=== PATIENT | male | born 1980 | race Caucasian/White ===

== ENCOUNTER 2018-07-24 15:56 | Inpatient (IN) | payer MEDICAID, OTHER ==
[~2018-07-24] VITALS: Ht 175.3 cm; Wt 95.8 kg
[~2018-07-24 15:56] MED LIST: DOCU250C91 PO; GABA-533 PO; LITH300C3 PO; MIRT30 PO; PRAZ5 PO; QUET200T29 PO
[2018-07-24 16:43] LABS: BASOPHILS % (AUTO) 0.5 % (0.0-2.0); EOSINOPHILS % (AUTO) 2.4 % (1.0-6.0); HEMATOCRIT 43.5 % (41-53); HEMOGLOBIN 14.7 g/dL (13.5-17.5); LYMPHOCYTES # (AUTO) 2.1 K/uL (1.0-4.8); LYMPHOCYTES % (AUTO) 25.7 % (22.0-44.0); MEAN CORPUSCULAR HEMOGLOBIN 28.8 pg (26.0-34.0); MEAN CORPUSCULAR HGB CONC 33.8 G/dL (31.0-37.0); MEAN CORPUSCULAR VOLUME 85 fL (80-100); MONOCYTES # (AUTO) 0.7 K/uL (0.1-1.0); MONOCYTES % (AUTO) 8.4 % (2.0-9.0); NEUTROPHILS # (AUTO) 5.1 K/uL (1.8-7.7); PLATELET COUNT (AUTO) 233 K/uL (150-450); RED BLOOD CELL COUNT(AUTO) 5.11 MIL/uL (4.50-5.90); RED CELL DISTRIBUTION WIDTH 13.2 % (11.5-14.5)
[2018-07-24 17:00] LABS: ANION GAP 8 mmol/L (8-16); CALCIUM, TOTAL 8.9 mg/dL (8.8-10.5); CARBON DIOXIDE 28 mmol/L (22-29); CHLORIDE 104 mmol/L (98-107); CREATININE 0.96 mg/dL (0.60-1.30); GLOMERULAR FILTR. RATE CALC > 60 mL/min (>60); GLUCOSE,RANDOM 95 mg/dL (70-110); SODIUM SERUM 140 mmol/L (136-145); UREA NITROGEN, BLOOD 17 mg/dL (7-18)
[2018-07-24 17:05] LABS: ALANINE AMINOTRANSFERASE 56 U/L (12-78); ALBUMIN 3.6 g/dL (3.4-5.0); ALKALINE PHOSPHATASE 72 U/L (46-116); ASPARTATE AMINOTRANSFERASE 32 U/L (15-37); BILIRUBIN,TOTAL 0.2 mg/dL (0.1-1.0); TOTAL PROTEIN, SERUM 7.2 g/dL (6.4-8.2)
[2018-07-24 17:24] LABS: LITHIUM < 0.20 mmol/L (0.60-1.20)
[2018-07-24 19:18] LABS: AMPHET/METH SCREEN,URINE NEGATIVE (NEGATIVE); BARBITURATE SCREEN, URINE NEGATIVE (NEGATIVE); BENZODIAZEPINES SCREEN,URINE NEGATIVE (NEGATIVE); CANNABINOID SCREEN,URINE NEGATIVE (NEGATIVE); COCAINE SCREEN,URINE NEGATIVE (NEGATIVE); METHADONE SCREEN, URINE NEGATIVE (NEGATIVE); OPIATE SCREEN,URINE NEGATIVE (NEGATIVE); PHENCYCLIDINE SCREEN,URINE NEGATIVE (NEGATIVE)
[2018-07-24 19:48] VITALS: BP 129/79
[2018-07-24] MEDS: LORazepam 2 MG TABLET PO PRN (20:31)
[2018-07-24] MEDS: HALOPERIDOL 5 MG TABLET PO PRN (20:31)
[2018-07-24] MEDS: PRAZOSIN HCL 5 MG CAPSULE PO SCH (21:48)
[2018-07-25] MEDS ORDERED: PNEUMOCOCCAL VACCINE POLYVALENT 0.5 ML VIAL [PPSV23] IM ONE (04:15)
[2018-07-25 07:08] LABS: CHOL/HDL RATIO 7.3 (4.2-7.3); CHOLESTEROL 204 mg/dL (131-200); HDL CHOLESTEROL 28 mg/dL (40-60); TRIGLYCERIDES 414 mg/dL (15-150)
[2018-07-25 08:03] VITALS: BP 130/84
[2018-07-25] MEDS: HALOPERIDOL 5 MG TABLET PO PRN ×2 (09:23→18:00)
[2018-07-25] MEDS: GABAPENTIN 400 MG CAPSULE PO SCH ×3 (09:23→17:25)
[2018-07-25] MEDS: LORazepam 2 MG TABLET PO PRN ×2 (09:23→18:00)
[2018-07-25] MEDS: DOCUSATE SODIUM 250 MG CAPSULE PO SCH (09:24)
[2018-07-25] MEDS: NICOTINE 21 MG/24 HOUR PATCH TD SCH (09:25)
[2018-07-25 18:07] VITALS: BP 109/71
[2018-07-25] MEDS: PRAZOSIN HCL 5 MG CAPSULE PO SCH (20:11)
[2018-07-26] MEDS: LORazepam 2 MG TABLET PO PRN ×2 (00:50→18:37)
[2018-07-26 01:05] VITALS: BP 141/91
[2018-07-26] MEDS: DOCUSATE SODIUM 250 MG CAPSULE PO SCH (10:23)
[2018-07-26] MEDS: GABAPENTIN 400 MG CAPSULE PO SCH ×3 (10:23→17:10)
[2018-07-26] MEDS: NICOTINE 21 MG/24 HOUR PATCH TD SCH (10:31)
[2018-07-26 12:02] VITALS: BP 108/61
[2018-07-26] MEDS: HALOPERIDOL 5 MG TABLET PO PRN ×2 (13:06→18:37)
[2018-07-26] MEDS: LITHIUM CARBONATE 300 MG CAPSULE PO SCH (17:10)
[2018-07-26 19:33] VITALS: BP 129/84
[2018-07-26] MEDS: MIRTAZAPINE 30 MG TABLET PO SCH (20:25)
[2018-07-26] MEDS: PRAZOSIN HCL 5 MG CAPSULE PO SCH (20:25)
[2018-07-27 01:22] VITALS: BP 104/80
[2018-07-27] MEDS: LITHIUM CARBONATE 300 MG CAPSULE PO SCH ×2 (07:18→16:49)
[2018-07-27 08:22] VITALS: BP 102/55
[2018-07-27] MEDS: DOCUSATE SODIUM 250 MG CAPSULE PO SCH (09:00)
[2018-07-27] MEDS: GABAPENTIN 400 MG CAPSULE PO SCH ×3 (09:09→16:49)
[2018-07-27] MEDS: NICOTINE 21 MG/24 HOUR PATCH TD SCH (09:10)
[2018-07-27 10:00] VITALS: BP 127/73
[2018-07-27] MEDS: LORazepam 2 MG TABLET PO PRN ×2 (13:34→19:22)
[2018-07-27] MEDS: HALOPERIDOL 5 MG TABLET PO PRN ×2 (13:35→19:22)
[2018-07-27 17:12] VITALS: BP 106/61
[2018-07-27] MEDS: MIRTAZAPINE 30 MG TABLET PO SCH (20:47)
[2018-07-27] MEDS: PRAZOSIN HCL 5 MG CAPSULE PO SCH (20:47)
[2018-07-28 00:25] VITALS: BP 117/77
[2018-07-28] MEDS: LITHIUM CARBONATE 300 MG CAPSULE PO SCH ×2 (06:57→17:09)
[2018-07-28 08:22] VITALS: BP 120/72
[2018-07-28] MEDS: DOCUSATE SODIUM 250 MG CAPSULE PO SCH (09:00)
[2018-07-28] MEDS: GABAPENTIN 400 MG CAPSULE PO SCH ×3 (09:57→17:09)
[2018-07-28] MEDS: NICOTINE 21 MG/24 HOUR PATCH TD SCH (09:59)
[2018-07-28] MEDS: HALOPERIDOL 5 MG TABLET PO PRN ×2 (12:41→19:01)
[2018-07-28] MEDS: LORazepam 2 MG TABLET PO PRN ×2 (12:41→19:01)
[2018-07-28] MEDS: MIRTAZAPINE 30 MG TABLET PO SCH (20:07)
[2018-07-28] MEDS: PRAZOSIN HCL 5 MG CAPSULE PO SCH (20:07)
[2018-07-28 20:34] VITALS: BP 118/68
[2018-07-29] MEDS: LITHIUM CARBONATE 300 MG CAPSULE PO SCH ×2 (06:56→16:28)
[2018-07-29 08:00] VITALS: BP 117/77
[2018-07-29] MEDS: DOCUSATE SODIUM 250 MG CAPSULE PO SCH (09:00)
[2018-07-29] MEDS: GABAPENTIN 400 MG CAPSULE PO SCH ×3 (09:48→16:28)
[2018-07-29] MEDS: NICOTINE 21 MG/24 HOUR PATCH TD SCH (09:49)
[2018-07-29] MEDS: HALOPERIDOL 5 MG TABLET PO PRN ×2 (12:48→20:20)
[2018-07-29] MEDS: LORazepam 2 MG TABLET PO PRN ×2 (12:48→20:19)
[2018-07-29 17:48] VITALS: BP 131/80
[2018-07-29] MEDS: MIRTAZAPINE 30 MG TABLET PO SCH (20:19)
[2018-07-29] MEDS: PRAZOSIN HCL 5 MG CAPSULE PO SCH (20:19)
[2018-07-30] MEDS: LITHIUM CARBONATE 300 MG CAPSULE PO SCH ×2 (07:02→16:12)
[2018-07-30] MEDS: DOCUSATE SODIUM 250 MG CAPSULE PO SCH (09:00)
[2018-07-30] MEDS: GABAPENTIN 400 MG CAPSULE PO SCH ×3 (09:07→16:12)
[2018-07-30] MEDS: NICOTINE 21 MG/24 HOUR PATCH TD SCH (09:11)
[2018-07-30 13:56] VITALS: BP 150/88
[2018-07-30] MEDS: LORazepam 2 MG TABLET PO PRN (14:14)
[2018-07-30] MEDS: HALOPERIDOL 5 MG TABLET PO PRN (14:14)
[2018-07-30] MEDS: PRAZOSIN HCL 5 MG CAPSULE PO SCH (20:16)
[2018-07-30] MEDS: MIRTAZAPINE 30 MG TABLET PO SCH (20:16)
[2018-07-31] MEDS: LITHIUM CARBONATE 300 MG CAPSULE PO SCH ×2 (07:06→17:26)
[2018-07-31] MEDS: DOCUSATE SODIUM 250 MG CAPSULE PO SCH (09:00)
[2018-07-31] MEDS: GABAPENTIN 400 MG CAPSULE PO SCH ×3 (09:27→16:12)
[2018-07-31] MEDS: NICOTINE 21 MG/24 HOUR PATCH TD SCH (09:28)
[2018-07-31 09:29] VITALS: BP 124/72
[2018-07-31] MEDS: LORazepam 2 MG TABLET PO PRN ×3 (10:00→20:33)
[2018-07-31] MEDS: HALOPERIDOL 5 MG TABLET PO PRN (19:54)
[2018-07-31] MEDS: MIRTAZAPINE 30 MG TABLET PO SCH (20:21)
[2018-07-31] MEDS: PRAZOSIN HCL 5 MG CAPSULE PO SCH (20:21)
[2018-07-31 21:17] VITALS: BP 126/75
[2018-07-31] MEDS: ZOLPIDEM TARTRATE 10 MG TABLET PO PRN (21:24)
[2018-08-01] MEDS: LITHIUM CARBONATE 300 MG CAPSULE PO SCH ×2 (06:33→16:14)
[2018-08-01] MEDS: DOCUSATE SODIUM 250 MG CAPSULE PO SCH (09:00)
[2018-08-01 09:12] VITALS: BP 124/76
[2018-08-01] MEDS: GABAPENTIN 400 MG CAPSULE PO SCH ×3 (09:44→16:14)
[2018-08-01] MEDS: NICOTINE 21 MG/24 HOUR PATCH TD SCH (09:46)
[2018-08-01] MEDS: LORazepam 2 MG TABLET PO PRN (12:57)
[2018-08-01] MEDS: HALOPERIDOL 5 MG TABLET PO PRN ×2 (12:57→20:05)
[2018-08-01] MEDS: MIRTAZAPINE 30 MG TABLET PO SCH (20:05)
[2018-08-01] MEDS: ZOLPIDEM TARTRATE 10 MG TABLET PO PRN (20:05)
[2018-08-01] MEDS: PRAZOSIN HCL 5 MG CAPSULE PO SCH (20:05)
[2018-08-01 20:27] VITALS: BP 142/74
[2018-08-02] MEDS: LITHIUM CARBONATE 300 MG CAPSULE PO SCH ×2 (06:47→16:21)
[2018-08-02] MEDS: NICOTINE 21 MG/24 HOUR PATCH TD SCH (08:37)
[2018-08-02] MEDS: GABAPENTIN 400 MG CAPSULE PO SCH ×3 (08:37→16:21)
[2018-08-02 08:52] VITALS: BP 123/72
[2018-08-02] MEDS: DOCUSATE SODIUM 250 MG CAPSULE PO SCH (08:56)
[2018-08-02 17:00] VITALS: BP 162/90
[2018-08-02] MEDS: LORazepam 2 MG TABLET PO PRN (18:31)
[2018-08-02] MEDS: ZOLPIDEM TARTRATE 10 MG TABLET PO PRN (20:34)
[2018-08-02] MEDS: MIRTAZAPINE 30 MG TABLET PO SCH (20:34)
[2018-08-02] MEDS: PRAZOSIN HCL 5 MG CAPSULE PO SCH (20:34)
[2018-08-02] MEDS: HALOPERIDOL 5 MG TABLET PO PRN (20:52)
[2018-08-03] MEDS: LITHIUM CARBONATE 300 MG CAPSULE PO SCH ×2 (06:43→16:23)
[2018-08-03] MEDS: DOCUSATE SODIUM 250 MG CAPSULE PO SCH (09:00)
[2018-08-03 09:14] VITALS: BP 114/62
[2018-08-03] MEDS: LORazepam 2 MG TABLET PO PRN (10:09)
[2018-08-03] MEDS: GABAPENTIN 400 MG CAPSULE PO SCH ×3 (10:09→16:23)
[2018-08-03] MEDS: PRAZOSIN HCL 5 MG CAPSULE PO SCH ×2 (10:09→20:19)
[2018-08-03] MEDS: HALOPERIDOL 5 MG TABLET PO PRN ×2 (10:09→18:57)
[2018-08-03] MEDS: NICOTINE 21 MG/24 HOUR PATCH TD SCH (10:11)
[2018-08-03 19:05] VITALS: BP 125/71
[2018-08-03] MEDS: MIRTAZAPINE 30 MG TABLET PO SCH (20:18)
[2018-08-03] MEDS ORDERED: LOPERAMIDE HCL 2 MG CAPSULE PO PRN (20:30)
[2018-08-04] MEDS: LITHIUM CARBONATE 300 MG CAPSULE PO SCH ×2 (06:34→16:31)
[2018-08-04] MEDS: DOCUSATE SODIUM 250 MG CAPSULE PO SCH (09:00)
[2018-08-04] MEDS: GABAPENTIN 400 MG CAPSULE PO SCH ×3 (09:22→16:31)
[2018-08-04] MEDS: NICOTINE 21 MG/24 HOUR PATCH TD SCH (09:23)
[2018-08-04 09:29] VITALS: BP 116/75
[2018-08-04 16:29] VITALS: BP 135/68
[2018-08-04] MEDS: HALOPERIDOL 5 MG TABLET PO PRN (16:31)
[2018-08-04] MEDS: MIRTAZAPINE 30 MG TABLET PO SCH (20:10)
[2018-08-04] MEDS: PRAZOSIN HCL 5 MG CAPSULE PO SCH (20:12)
[2018-08-05] MEDS: HALOPERIDOL 5 MG TABLET PO PRN (05:49)
[2018-08-05] MEDS: LITHIUM CARBONATE 300 MG CAPSULE PO SCH (06:39)
[2018-08-05 06:47] VITALS: BP 133/80
[2018-08-05] MEDS: DOCUSATE SODIUM 250 MG CAPSULE PO SCH (10:41)
[2018-08-05] MEDS: GABAPENTIN 400 MG CAPSULE PO SCH ×2 (10:41→13:50)
[2018-08-05] MEDS: NICOTINE 21 MG/24 HOUR PATCH TD SCH (10:41)
[2018-08-05 10:50] VITALS: BP 113/62
[2018-08-05] MEDS ORDERED: LITH300C3 PO (12:41)
== END 2018-08-05 15:00 | disposition home or self-care (01) | DRG 753 ==
LOC: EMS 15:57 → 3EI 18:28
PROVIDERS: ADMIT Psychiatry & Neurology Child & Adolescent Psychiatry; ATTEND Psychiatry & Neurology Child & Adolescent Psychiatry
DX: F31.5 Bipolar disorder, current episode depressed, severe, with psychotic features (principal); R45.851 Suicidal ideations; Z91.19 Patient's noncompliance with other medical treatment and regimen; F12.90 Cannabis use, unspecified, uncomplicated; F41.9 Anxiety disorder, unspecified; Z28.21 Immunization not carried out because of patient refusal; Z88.0 Allergy status to penicillin; I10 Essential (primary) hypertension; F17.200 Nicotine dependence, unspecified, uncomplicated; K59.00 Constipation, unspecified; F14.90 Cocaine use, unspecified, uncomplicated; Z91.5 Personal history of self-harm
CPT/HCPCS: 87081; G0480